=== PATIENT | female | born 1950 | race Caucasian/White ===

== ENCOUNTER → 2019-10-22 21:02 | Outpatient (CLI) | payer MEDICARE, BC, SELFPAY ==
[2019-10-22 15:30] VITALS: BMI 31.4
[2019-10-22 21:13] LABS: Absolute Lymphocyte Count 1.86 X10^3/uL (0.83-4.51); Absolute Neutrophil Count 3.4 X10^3/uL (2.0-7.7); Basophil# 0.05 X10^3/uL; Basophil% 0.8 % (0-1); Eosinophil# 0.24 X10^3/uL; Eosinophils% 3.9 % (0-5); Hematocrit 39.7 % (37-47); Hemoglobin 12.9 g/dL (12.0-15.0); Lymphocyte # 1.86 X10^3/ul (4.0); Lymphocyte % 30.1 % (19-41); Mean Corp Hgb Conc 32.5 g/dL (32-36); Mean Corpuscular Hgb 30.1 pg (27.0-32.0); Mean Corpuscular Volume 92.5 fL (81-99); Mean Platelet Vol. 11.1 fl (6.2-12.0); Monocyte% 9.7 % (0-10); NRBC Flagged by Analyzer 0 % (0-5); Neutrophil # 3.39 X10^3/uL (2.7-7.7); Neutrophil % 54.9 % (47-70); Platelet Count 247 K/mm3 (150-450); RBC Distribution Width CV 13.2 % (11.6-14.6); RBC Distribution Width SD 44.5 fl (35.1-43.9); Red Blood Count 4.29 M/mm3 (4.2-5.4); White Blood Count 6.2 K/mm3 (4.4-11.0)
[2019-10-22 22:53] LABS: ALB/GLOB Ratio 1.2 RATIO (0.9-2.4); AST(SGOT) 16 U/L (15-37); Alanine Aminotransfer ALT/SGPT 28 U/L (13-56); Albumin, Serum 3.7 g/dL (3.2-5.0); Alkaline Phosphatase 105 U/L (45-117); Anion Gap 6 (5-15); BUN 12 mg/dL (7-18); BUN/Creat Ratio 16.7 RATIO (10-20); CPK Total, Creatine Kinase 82 U/L (26-192); CRP, High Sensitivity Cardiac 3.47 mg/L; Calcium,Total 8.5 mg/dL (8.5-10.1); Chloride 113 mmol/L (98-107); Cholesterol 168 mg/dL (200); Creatinine, Serum 0.72 mg/dL (0.55-1.02); EST Glomerular Filtration Rate 85 mL/min (>60); Est Glom Filt Rate - Afr Amer 103 mL/min (>60); Globulin 3.2 g/dL (2.2-4.2); Glucose 86 mg/dL (74-106); High Density Lipoprotein 54 mg/dL; Potassium 4.2 mmol/L (3.5-5.1); Protein, Total 6.9 g/dL (6.4-8.2); Sodium Level 145 mmol/L (136-145); Triglycerides 163 mg/dL; Very Low Density Lipoprotein 33 mg/dL (5-40)
== END ==
PROVIDERS: Family Provider Nurse Practitioner; PCP Nurse Practitioner; Referring Provider Nurse Practitioner; Visit Provider Nurse Practitioner
DX: I10 Essential (primary) hypertension (principal); I49.9 Cardiac arrhythmia, unspecified
CPT/HCPCS: 80053; 80061; 82550; 84484; 85025; 86141

== ENCOUNTER → 2019-11-05 12:30 | Outpatient (CLI) | payer MEDICARE, BC, SELFPAY ==
[2019-10-23 08:35] VITALS: BMI 30.7
--- NOTE | 2019-11-05 12:33 | ECHOD_ITS ---
Reason For Study: ATRIAL FIB-FLUTTER Procedure This was a 2D Doppler, Color Flow transthoracic echocardiogram. Exam performed in department. Left Ventricle Normal LV size. Left ventricular systolic function is normal. The estimated ejection fraction is 65 %. Normal diastology for age. No regional wall motion abnormalities noted. Right Ventricle Normal RV size. Normal systolic function. Atria Normal left atrium. Normal right atrium. Mitral Valve Normal mitral valve. Mild (1+) eccentric mitral valve insufficiency. Tricuspid Valve Normal tricuspid valve. Mild (1+) tricuspid valve insufficiency. Pulmonary artery systolic pressure is 36 mmHg. Aortic Valve Normal aortic valve. Trisinus/trileaflet aortic valve. Pulmonic Valve Normal pulmonic valve. Great Vessels Normal aortic root. The pulmonary artery is normal size. Normal inferior vena cava. Pericardium/Pleural No pericardial effusion. MMode/2D Measurements & Calculations LVIDd: 4.5 cm IVSd: 0.93 cm Ao root diam: 3.1 cm LVIDs: 3.0 cm LVPWd: 0.92 cm RVDd: 3.0 cm FS: 31.9 % LAV(MOD-bp): 48.1 ml LVAd ap4: 25.3 cm2 SV(MOD-sp4): 44.5 ml LAV(MOD-bp) Indexed: 28.1 ml/m2 EDV(MOD-sp4): 75.3 ml LAV(MOD-sp2): 52.5 ml EDV(sp4-el): 78.3 ml LAV(MOD-sp4): 43.2 ml LVAs ap4: 14.0 cm2 ESV(MOD-sp4): 30.8 ml ESV(sp4-el): 30.2 ml EF(MOD-sp4): 59.1 % EF(sp4-el): 61.4 % SV(sp4-el): 48.0 ml LA A4 area: 17.0 cm2 LA dimension(2D): 3.6 cm RA A4 area: 14.6 cm2 Time Measurements MV dec time: 0.21 sec Doppler Measurements & Calculations MV E max andrew: 81.5 cm/sec Lat Peak E' Andrew: 13.5 cm/sec Med Peak E' Andrew: 9.5 cm/sec MV A max andrew: 67.5 cm/sec E/E' lat: 6.1 E/E' med: 8.6 MV E/A: 1.2 Ao V2 max: 147.4 cm/sec LV V1 max: 107.4 cm/sec PA V2 max: 111.5 cm/sec Ao max P.7 mmHg LV V1 max P.6 mmHg TR max andrew: 283.8 cm/sec TR max P.2 mmHg Interpretation Summary Normal LV size. Left ventricular systolic function is normal. The estimated ejection fraction is 65 %. Normal diastology for age. Mild (1+) eccentric mitral valve insufficiency. Mild (1+) tricuspid valve insufficiency. Ordering Physician: Sae Espinoza Referring Physician: Sae Espinoza Performed By: Amairani Mullen RDCS
== END ==
PROVIDERS: Family Provider Nurse Practitioner; PCP Nurse Practitioner; Referring Provider Internal Medicine Cardiovascular Disease; Visit Provider Internal Medicine Cardiovascular Disease
DX: R00.2 Palpitations (principal)
CPT/HCPCS: 93225; 93226; 93306

== ENCOUNTER → 2019-12-19 | Outpatient (CLI) | payer MEDICARE, BC, SELFPAY ==
[2019-12-19 15:24] VITALS: BMI 31.6
[2019-12-19 22:43] LABS: Thyroid Stim Hormone (TSH) 3.41 uIU/mL (0.358-3.74)
== END | disposition home or self-care (01) ==
PROVIDERS: PCP Nurse Practitioner; Referring Provider Nurse Practitioner; Visit Provider Nurse Practitioner
DX: E03.9 Hypothyroidism, unspecified (principal)
CPT/HCPCS: 84443

== ENCOUNTER → 2021-01-02 | Outpatient (CLI) | payer MEDICARE, BC, SELFPAY ==
[2021-01-02 18:54] VITALS: BMI 30.9
[2021-01-02 22:02] LABS: Absolute Lymphocyte Count 2.12 X10^3/uL (0.83-4.51); Absolute Neutrophil Count 2.3 X10^3/uL (2.0-7.7); Basophil# 0.05 X10^3/uL; Basophil% 0.9 % (0-1); Eosinophil# 0.35 X10^3/uL; Eosinophils% 6.6 % (0-5); Hematocrit 40.3 % (37-47); Hemoglobin 13.1 g/dL (12.0-15.0); Lymphocyte # 2.12 X10^3/ul (4.0); Mean Corp Hgb Conc 32.5 g/dL (32-36); Mean Corpuscular Hgb 29.9 pg (27.0-32.0); Mean Platelet Vol. 10.6 fl (6.2-12.0); Monocyte# 0.44 X10^3/uL; Monocyte% 8.3 % (0-10); NRBC Flagged by Analyzer 0 % (0-5); Neutrophil # 2.33 X10^3/uL (2.7-7.7); Platelet Count 282 K/mm3 (150-450); RBC Distribution Width CV 13.6 % (11.6-14.6); RBC Distribution Width SD 46.5 fl (35.1-43.9); Red Blood Count 4.38 M/mm3 (4.2-5.4); White Blood Count 5.3 K/mm3 (4.4-11.0)
[2021-01-02 22:20] LABS: ALB/GLOB Ratio 1.2 RATIO (0.9-2.4); AST(SGOT) 26 U/L (15-37); Alanine Aminotransfer ALT/SGPT 41 U/L (13-56); Albumin, Serum 3.7 g/dL (3.2-5.0); Alkaline Phosphatase 117 U/L (45-117); Anion Gap 6 (5-15); BUN 17 mg/dL (7-18); BUN/Creat Ratio 24.7 RATIO (10-20); Calcium,Total 8.6 mg/dL (8.5-10.1); Chloride 110 mmol/L (98-107); Cholesterol 178 mg/dL (200); Creatinine, Serum 0.69 mg/dL (0.55-1.02); EST Glomerular Filtration Rate 89 mL/min (>60); Est Glom Filt Rate - Afr Amer 108 mL/min (>60); Globulin 3.2 g/dL (2.2-4.2); Glucose 93 mg/dL (74-106); High Density Lipoprotein 58 mg/dL; Potassium 3.6 mmol/L (3.5-5.1); Protein, Total 6.9 g/dL (6.4-8.2); Sodium Level 145 mmol/L (136-145); Thyroid Stim Hormone (TSH) 2.59 uIU/mL (0.358-3.74); Triglycerides 116 mg/dL; Very Low Density Lipoprotein 23 mg/dL (5-40)
== END | disposition home or self-care (01) ==
PROVIDERS: PCP Nurse Practitioner; Referring Provider Nurse Practitioner; Visit Provider Nurse Practitioner
DX: I10 Essential (primary) hypertension (principal)
CPT/HCPCS: 80053; 80061; 84443; 85025

== ENCOUNTER → 2021-03-10 21:37 | Outpatient (CLI) | payer MEDICARE, BC, SELFPAY ==
[2021-01-27 19:41] VITALS: BMI 30.2
[2021-03-10 22:04] LABS: ALB/GLOB Ratio 1.2 RATIO (0.9-2.4); AST(SGOT) 30 U/L (15-37); Alanine Aminotransfer ALT/SGPT 44 U/L (13-56); Albumin, Serum 3.7 g/dL (3.2-5.0); Alkaline Phosphatase 122 U/L (45-117); Anion Gap 8 (5-15); BUN 18 mg/dL (7-18); BUN/Creat Ratio 24.4 RATIO (10-20); Calcium,Total 9.2 mg/dL (8.5-10.1); Chloride 108 mmol/L (98-107); Creatinine, Serum 0.74 mg/dL (0.55-1.02); EST Glomerular Filtration Rate 82 mL/min (>60); Est Glom Filt Rate - Afr Amer 100 mL/min (>60); Globulin 3.2 g/dL (2.2-4.2); Glucose 109 mg/dL (74-106); Protein, Total 6.9 g/dL (6.4-8.2); Sodium Level 143 mmol/L (136-145)
== END ==
PROVIDERS: Visit Provider Nurse Practitioner
DX: I10 Essential (primary) hypertension (principal)
CPT/HCPCS: 80053

== ENCOUNTER → 2021-04-02 | Outpatient (CLI) | payer MEDICARE, BC, SELFPAY ==
[2021-04-02 15:15] VITALS: BMI 29.7
[2021-04-02 21:40] LABS: ALB/GLOB Ratio 1.1 RATIO (0.9-2.4); AST(SGOT) 27 U/L (15-37); Alanine Aminotransfer ALT/SGPT 45 U/L (13-56); Albumin, Serum 3.8 g/dL (3.2-5.0); Alkaline Phosphatase 133 U/L (45-117); Anion Gap 7 (5-15); BUN 20 mg/dL (7-18); BUN/Creat Ratio 25.7 RATIO (10-20); Chloride 104 mmol/L (98-107); Creatinine, Serum 0.78 mg/dL (0.55-1.02); EST Glomerular Filtration Rate 77 mL/min (>60); Est Glom Filt Rate - Afr Amer 93 mL/min (>60); Globulin 3.6 g/dL (2.2-4.2); Glucose 117 mg/dL (74-106); Potassium 3.2 mmol/L (3.5-5.1); Protein, Total 7.4 g/dL (6.4-8.2); Sodium Level 142 mmol/L (136-145)
== END | disposition home or self-care (01) ==
PROVIDERS: Visit Provider Nurse Practitioner
DX: E87.6 Hypokalemia (principal)
CPT/HCPCS: 80053

== ENCOUNTER 2021-12-22 22:45 | Outpatient (CLI) | payer MEDICARE, BC, SELFPAY ==
[2021-12-22 22:57] LABS: Absolute Lymphocyte Count 2.03 X10^3/uL (0.83-4.51); Absolute Neutrophil Count 2.4 X10^3/uL (2.0-7.7); Basophil# 0.05 X10^3/uL; Eosinophil# 0.23 X10^3/uL; Eosinophils% 4.4 % (0-5); Hematocrit 41.4 % (37-47); Hemoglobin 14.3 g/dL (12.0-15.0); Lymphocyte # 2.03 X10^3/ul (0.83-4.51); Mean Corp Hgb Conc 34.5 g/dL (32-36); Mean Corpuscular Hgb 30.6 pg (27.0-32.0); Mean Corpuscular Volume 88.5 fL (81-99); Mean Platelet Vol. 10.5 fl (6.2-12.0); Monocyte# 0.46 X10^3/uL; Monocyte% 8.8 % (0-10); NRBC Flagged by Analyzer 0 % (0-5); Neutrophil # 2.42 X10^3/uL (2.7-7.7); Neutrophil % 46.6 % (47-70); Platelet Count 247 K/mm3 (150-450); RBC Distribution Width CV 13.1 % (11.6-14.6); RBC Distribution Width SD 42.5 fl (35.1-43.9); Red Blood Count 4.68 M/mm3 (4.2-5.4); White Blood Count 5.2 K/mm3 (4.4-11.0)
[2021-12-22 23:18] LABS: ALB/GLOB Ratio 1.1 RATIO (0.9-2.4); AST(SGOT) 26 U/L (15-37); Alanine Aminotransfer ALT/SGPT 33 U/L (13-56); Albumin, Serum 3.8 g/dL (3.2-5.0); Alkaline Phosphatase 110 U/L (45-117); Anion Gap 6 (5-15); BUN 23 mg/dL (7-18); BUN/Creat Ratio 32.4 RATIO (10-20); Chloride 104 mmol/L (98-107); Creatinine, Serum 0.71 mg/dL (0.55-1.02); EST Glomerular Filtration Rate 86 mL/min (>60); Est Glom Filt Rate - Afr Amer 104 mL/min (>60); Globulin 3.5 g/dL (2.2-4.2); Glucose 102 mg/dL (74-106); Potassium 3.1 mmol/L (3.5-5.1); Protein, Total 7.3 g/dL (6.4-8.2); Sodium Level 139 mmol/L (136-145)
== END 2021-12-22 23:59 | disposition home or self-care (01) ==
PROVIDERS: Referring Provider Nurse Practitioner; Visit Provider Nurse Practitioner
DX: E87.1 Hypo-osmolality and hyponatremia (principal); E03.9 Hypothyroidism, unspecified
CPT/HCPCS: 80053; 84443; 85025

== ENCOUNTER 2022-01-22 21:42 | Outpatient (CLI) | payer MEDICARE, BC, SELFPAY ==
[2022-01-22 22:09] LABS: Thyroid Stim Hormone (TSH) 0.65 uIU/mL (0.358-3.74)
== END 2022-01-22 23:59 | disposition home or self-care (01) ==
PROVIDERS: Referring Provider Nurse Practitioner; Visit Provider Nurse Practitioner
DX: E03.9 Hypothyroidism, unspecified (principal)
CPT/HCPCS: 84443

== ENCOUNTER → 2022-03-13 | Outpatient (CLI) | payer MEDICARE, BC, SELFPAY ==
[2022-03-13 04:39] LABS: ALB/GLOB Ratio 1.2 RATIO (0.9-2.4); AST(SGOT) 25 U/L (15-37); Alanine Aminotransfer ALT/SGPT 40 U/L (13-56); Albumin, Serum 3.8 g/dL (3.2-5.0); Alkaline Phosphatase 99 U/L (45-117); Anion Gap 5 (5-15); BUN 20 mg/dL (7-18); BUN/Creat Ratio 30.8 RATIO (10-20); Chloride 110 mmol/L (98-107); Creatinine, Serum 0.65 mg/dL (0.55-1.02); EST Glomerular Filtration Rate 95 mL/min (>60); Est Glom Filt Rate - Afr Amer 115 mL/min (>60); Globulin 3.2 g/dL (2.2-4.2); Glucose 91 mg/dL (74-106); Potassium 3.6 mmol/L (3.5-5.1); Sodium Level 144 mmol/L (136-145)
== END | disposition home or self-care (01) ==
LOC: LABSPEC 04:06
PROVIDERS: Referring Provider Nurse Practitioner; Visit Provider Nurse Practitioner
DX: E87.6 Hypokalemia (principal); E87.1 Hypo-osmolality and hyponatremia
CPT/HCPCS: 80053

== ENCOUNTER 2023-03-02 08:03 | Day surgery (SDC) | payer MEDICARE, BC, SELFPAY ==
[2023-02-18 12:37] LABS: Albumin, Serum 3.6 g/dL (3.2-5.0)
[2023-02-18 12:50] LABS: Thyroid Stim Hormone (TSH) 1.47 uIU/mL (0.358-3.74)
--- NOTE | 2023-02-18 22:56 | HP.PCM_ITS ---
History and Physical History and Physical? Patient Name: Eulalia Lujan : 1950 From:? MONICA VASQUEZ PA-C? DATE OF SURGERY:? 03/02/2023 SCHEDULED PROCEDURE:? Left total knee arthroplasty HISTORY OF PRESENT ILLNESS: Preoperative history and physical exam was performed on February 18, 2023.? This is a 72-year-old female who is been having ongoing pain for nearly 4 years.? She has had previous injury for the knee tripping over a garden hose in the past landing on concrete.? Her pain has been constant, aching, sharp.? She has increased pain going up and down stairs and walking.? She has pain with twisting type activities.? She has to sleep with a pillow between her legs at nighttime.? She complains of medial joint line pain.? She does have start up pain.? Pain can still reach as high as 8/10 with activities.? She has had previous corticosteroid injections with minimal relief.? 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 She has tripped/stumbled in the past due to the pain.? She feels unsafe walking for distances.? She denies previous surgery on the left knee.? She has attempted [id number] medicatio ns including Tylenol with minimal relief.? After failing conservative measures and discussing treatment options with Dr. Cheo Oakes, the patient does wish to proceed with a left total knee arthroplasty.? We have received clearance from her primary care provider Maria Luisa Rm.? She has had previous lab work and EKG.? She denies any recent chest pain, shortness of breath, fevers chills or recent infections.? She denies past history of DVT or pulmonary embolism.? She has tried meloxicam with minimal relief.? Patient has a medical history pertinent for hypertension, thyroid disease and previous kidney stones. REVIEW OF SYSTEMS: Review Of Systems: Constitutional: Reports weight change, but denies change in appetite and fever. Cardiovasular: Denies chest pain, heart murmur and irregular heartbeat. Respiratory: Denies cough, pneumonia, shortness of breath, tuberculosis and wheezing. Gastrointestinal: Denies constipation, diarrhea, heartburn, nausea, rectal itching, bloody stools and vomiting. Genitourinary: Denies incontinence. Musculoskeletal: Reports gait disturbance, leg swelling, pain and trouble walking, but denies weakness. Skin: Reports tattoo, but denies Raynaud's and history of shingles. Neurological: Denies ambulatory dysfunction, dizziness, numbness/tingling and tremor. Psychiatric: Denies anxiety, insomnia and stress. Hematologic/Lymphatic: Reports past transfusion, but denies anemia and bleeding/bruising tendency. Reviewed and updated. PAST MEDICAL HISTORY: Advance Care Plan: Other Directive, LIVING WILL Effective Date: 02/25/2022 Other Directive, POA Effective Date: 02/25/2022 Past Medical History: Medical Problems: High Blood Pressure Kidney Stones - X3 Thyroid Disease Accidents: Fracture - (2001) LT [facility] Surgical Hx: Tubal Ligation - 48 YEARS AGO Anesthesia Complications: Anesthesia Complications - HAD TO WAKE UP Assistive Devices: Glasses - READING, Dentures Reviewed and updated. 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 Personal Habits:? Cigarette Use: Never Smoked Cigarettes.Smokeless Tobacco: Never Used Smokeless Tobacco.E-Cigarette Use: Never used.Alcohol: Denies use.Drug Use: Denies Use.Enjoy Exercising: Daily. Reviewed, no changes. VITALS: Ht: 60 Wt: 155lb Wt k.308 BMI: 30.3 BP: 124/72 Pulse: 72 Resp: 13 T: 96.6 T: 35.9C Pain Level: 8 O2SatR: 98 ALLERGIES: No Known Drug Allergy? MEDICATIONS: Oxycodone HCL 5 mg 1-2 tab by mouth every 4 hours, Zofran 4 mg one by mouth every 8 as needed nausea, Famotidine 20 mg 1 by mouth every day, Meloxicam 15 mg 1 by mouth every day, Potassium Chloride ER 20 Meq 1po qday, Levothyroxine Sodium 100 mcg 1 by mouth every day, Chlorthalidone 25 mg 1 by mouth every day, Vitamin D3 250 mcg (07398 Ut) 1`po everyday PRE-OP EXAM:? General appearance:NORMAL? ? ? Other: Eyes: Conjunctivae and lids: NORMAL? Pupils: ERR Ears, Nose, Mouth, and Throat: NORMAL? Other: Inspection of lips, teeth and gums: NORMAL? ?Other: Neck: Examination of neck: no masses noted. Respiratory: Assessment of respiratory effort: NORMAL? ?Other: ?Auscultation of lungs: clear to auscultation no wheezes, rhonchi or rales. Cardiovascular:? Auscultation of heart: regular rate and rhythm, no murmurs, gallops or rubs. PHYSICAL EXAMINATION: Patient does walk with an antalgic gait.? She has tenderness to palpation along the medial joint line.? There is large effusion with the left knee.? There is no erythema or signs of infection.? Range of motion: Lacks 3 full extension to 120 flexion.? She has correctable varus alignment.? Stable to anterior/posterior drawer with firm endpoint.? Sensation intact to light touch. IMAGING STUDIES: Previous x-rays of left knee reveal varus alignment with medial joint space narrowing, subchondral sclerosis, osteophyte formation consistent with severe stage IV [id number]-[id number] erosive osteoarthritis. IMPRESSION: 1.? Severe left knee osteoarthritis 2.? Hypertension 3.? Thyroid disease 4.? History of kidney stones PLAN: Dr. Cheo Oakes did discuss and review with the patient all treatment options including surgical versus nonsurgical options.? Patient does wish to proceed with the above-stated procedure.? Potential risks, benefits, and complications of the procedure were discussed in detail including but not limited to , infection, nerve and blood vessel damage, persistent pain, numbness, tingling, paresthesias, blood clot, pulmonary embolism, and requirement for possible further surgery.? The patient expressed full understanding and has no further questions for the doctor.? Patient does agree to proceed with the above-stated procedure and has signed the surgery consent form. POST-OP MEDICATION PLAN Postop medications: Patient was given the following medications at the preoperative visit: Famotidine, oxycodone, Zofran.? She was instructed to pickler helper aspirin 81 mg, and senna.? Patient has meloxicam and which she will begin postoperatively.? She will bring her walker to day of surgery. DVT Prophylaxis: Plan will be for aspirin 81 mg twice daily for 4 weeks postoperatively.? Patient denies past history of DVT or pulmonary embolism. This dictation was created using voice recognition software. Phonetic and/or grammatical errors may exist. ___? I have re-examined the patient.? There are no clinical changes since date of exam. ___? See progress notes for changes. ___? Dictated on admission Date: ? ? ?Time: Signature:
[2023-03-02] VITALS (8 sets, daily range): BP systolic 117–169; BP diastolic 54–76; PULSE 77–88; RESP 14–18; TEMP 36.4–37.2; O2SAT 93–99; BMI 28.7
--- NOTE | 2023-03-02 07:40 | PCM.OPRPT ---
Report of Operation Date of Procedure: 03/02/23 Pre-Operative Diagnosis: Left knee primary osteoarthritis Post-Operative Diagnosis: Left knee primary osteoarthritis Surgery/Procedure Performed:: Left knee minimally invasive robotic assisted total knee replacement Description of Surgical Findings:: Stable knee with good patella tracking Surgeon: Cheo Oakes terrazzo journeyman: Simba Dee Type of Anesthesia: Spinal Anesthesiologist: Hernandez Mitchell Special Medications: 2 g Ancef, 1 g TXA at incision, 1 g TXA closure, 10 mg Decadron, joint cocktail (5 mg Duramorph, 30 mL of 0.5% Ropivicaine, 1000 units of epinephrine, 30 mg of Toradol) Specimen's removed: Bony cuts Estimated Blood Loss (mL): 75 Fluids Replaced: 1200 ML Description of Procedure: Implants used: 1. Pepper size 3 triathlon cruciate retaining distal femoral press-fit component 2. Creswell size 3 press-fit tritanium tibial baseplate 3. Pepper X3 9 mm CS polyethylene 4. Creswell X3 32 mm asymmetric patella Brief history operative indications: 72-year-old F with history of left knee osteoarthritis with radiographic findings with loss of joint space, osteophyte formation and subchondral sclerosis. Failed conservative measures as mentioned in the H&P. Discussion of total knee arthroplasty as well as risk and benefits were discussed the patient including but not limited to blood loss, DVTs, PEs, neurovascular damage, general risk of anesthesia including loss of life, and stiffness or instability were discussed with patient. Patient demonstrated understanding and was able to sign informed consent. Procedure: On the date of procedure patient's left lower extremity was marked in the preoperative area. The patient was then taken back to the operating room where the patient was placed on the table in the supine position. All bony prominences were identified a well-padded. Anesthesia assumed control of the C-spine and airway and remained controlled throughout the remainder of the procedure. A tourniquet was placed on the left upper thigh and the leg was prepped in a sterile fashion. The surgeon then scrubbed at this time .Upon reentering the room left lower extremity was draped in a standard orthopedic fashion. A timeout was then called and everyone agreed upon the side, the site, the procedure to be performed, patient's identity and antibiotics given. Esmarch bandage was used to exsanguinate the extremity and the tourniquet was placed up to 250 mmHg with the knee in flexion. A midline skin incision was made and sharp dissection was taken down through skin subcutaneous tissue and fat. The standard medial parapatellar incision was made and the patella was subluxed laterally. An Appropriate deep MCL release was done and the fat pad was resected. Our attention was then directed to the patella. The patella was everted and a flat resection was made. The knee was then flexed up in 2 femoral pins were placed inside the incision and 2 tibial pins were placed outside the incision in the medial tibia bicortically. Once this was completed the 2 checkpoints in the femur and tibia were placed. Knee was then flexed up and the bony landmarks were registered. Once this was completed knee was taken through range of motion and manually stressed allowing us to a plan for an appropriate tibial cut. The robotic arm was brought into the field sterilely and checkpoint and saw were registered. Based on the patient's deformity the tibial cut was made in 1 degree of varus. At this time the tensioner was then placed in the joint and ligament tension was checked at 90 degrees and full extension. Based on the patient's ligamentous tension appropriate adjustments were made to the operative plan and ligament releases were done. Once we were happy with our operative plan with balanced flexion and extension gaps our attention was directed to the femur. The robot was brought into the field sterilely and registered. Posterior condylar cuts, anterior chamfer cuts and anterior cuts were appropriately made for a size 3 femur. When these were completed the saws were switched out in the distal femoral and posterior chamfer cuts were made. Protecting the soft tissue throughout this time. A size 3 tibial base plate was selected. the knee was flexed to 90 degrees and the soft tissues and posterior osteophytes were removed from the joint. 40 cc of the periarticular injection was injected into the posterior medial corner of the joint. The appropriate trials were then placed on the femur and tibia. A trial polyethylene was trialed to ensure proper balancing and stability of the knee. The appropriate tibial internal rotation was then marked with a bovie. Our attention was then directed to the patella. The lug holes were drilled and the patella trial was placed. Patellar tracking was checked and deemed appropriate. Once we were happy lug holes were drilled for the femur and trial components were removed. the tibia was subluxed and pinned into place and the keel was punched and drilled appropriately. Final components were verified and opened, and cement was mixed in a vacuum. [employer] Simplex cement was used. The wound was copiously irrigated with normal saline. When the cement was ready the components were impacted into place starting with the tibia, femur and finally cementing the patella. The trial poly component was placed and the knee was placed in full extension. All excess cement was removed in the process. Once the cement had cured the tracking, alignment and balance were verified and a size 9 mm CS polyethylene component was placed. Once the final components were placed a 3-minute dilute Betadine lavage was performed followed by an Irrisept lavage was performed and the wound was copiously irrigated with normal saline solution and the periarticular injection was given. The wound was closed in a layer gotti fashion using #1 vicryl interrupted sutures for the arthrotomy, 2-0 interrupted Vicryl suture for the subcuticular layer and danny for final skin closure. A sterile compressive dressing was then placed. The patient was then awakened from anesthesia, transferred to the [place] and transferred to the PACU for recovery. Post op plan DVT ppx: ASA 81mg BID, thigh high compression stockings Follow up: in office in 2 weeks for wound check PT: to start POD #0 at hospital, outpatient PT should be arranged. My physician recruitment assistant was a vital part of this case. He was important in appropriate retraction during the case, and protection of soft tissues during bony cuts. His intimate knowledge of the case and my steps aided in safe and expedient completion of the procedure as well as appropriate position of the leg during the case. He was also vital in assisting with closure under my direct supervision. Due to the complexity of this case robotic arm was used to assist in the surgery to improve accuracy and clinical outcomes. Complications No intraoperative complications Admit VTE Documentation VTE Present on Admission: No VTE Mechan Device Prophylaxis: SCD's and Thigh High ZELDA Hose VTE Pharm Prophylaxis ordered?: Yes
[2023-03-02] MEDS: Magnesium 1 GM over 15 mins IV (08:38)
[2023-03-02] MEDS: Lactated Ringers 1,000 ML 999 ML IV ×2 (08:38→12:15)
[2023-03-02] MEDS: Acetaminophen 500 MG Tablet 1000 MG PO ×2 (08:40→14:50)
[2023-03-02] MEDS: Gabapentin 600 MG Tablet PO (08:41)
[2023-03-02] MEDS: Celecoxib 200 MG Capsule 400 MG PO (08:41)
[2023-03-02] MEDS: Vancomycin IV 1,000 MG/200 ML BAG 200 MG IV (08:49)
[2023-03-02 09:15] LABS: Bedside Glucose 104 mg/dL (74-106)
--- NOTE | 2023-03-02 10:30 | KNEE_PTH ---
PATIENT: RACHEL ELIZABETH LOC: [facility] [place] U#:[id number] AGE/SX: 72/F ROOM: RE03/02/[address]: Dr. Cheo Oakes MD : 1950 BED: DIS: 03/02/2023 SPEC #: [id number] RECD: 03/02/23 14:27 STATUS: ANGEL REKelsi #: [id number] ERIK: 03/02/23 10:[address]: Cheo Oakes DEPT: SURGICAL PATHOLOGY RECD BY: Jyotsna Gutierrez ENTERED: 03/03/23 09:43 SP TYPE: TOTAL KNEE OTHR DR: Maria Luisa Rm, SITE SPECIALIST-C Tissues: Knee, NOS Procedures: Decalcification bone/plaque Surgery Specimen Level IV HEADER OPERATION: ERAS, total knee replacement robotic arm assist PRE-OP DIAGNOSIS: Osteoarthritis left knee TISSUE SUBMITTED: Debrided tissue and bone left knee MICROSCOPIC DIAGNOSIS Bone and tissue, left knee, total knee replacement/resection: Pieces of bone with degenerative osteoarthritic changes. Fibroadipose tissue, fibroconnective tissue and reactive synovial tissue. MER:killian 03/07/2023 MICROSCOPIC DESCRIPTION Slides are reviewed. GROSS DESCRIPTION Received is one container designated debrided tissue and bone left knee. The specimen consists of multiple fragments of guzman-yellow bone measuring in aggregate 9.0 x 8.0 x 3.0 cm. A small piece of soft tissue attached to one of the pieces of bone measuring 3.5 x 1.0 x 0.5 cm. A number of bony fragments contain articular surfaces consistent with tibial plateau and femoral condyle and displaying prominent osteophyte formation, eburnation and bone erosion. Ring Making Machine Operator sections are submitted in two cassettes as follows: 1 - soft tissue, 2 - bone after decalcification. / MER:killian 03/03/2023 :5 CPT: 07595, [id number]
[2023-03-02] MEDS: Cefazolin 2 GM in 0.9% Normal Saline 100 ML IV (10:35)
[2023-03-02] MEDS: dexAMETHasone 10 MG/ML Vial IV (10:50)
[2023-03-02] MEDS: TXA 1000mg in NS100 100ml (IVPB at Incision) 660 MG IV (10:50)
[2023-03-02] MEDS: JPS (Morphine 10mg/ml) OPERA.SITE (11:18)
[2023-03-02] MEDS: TXA 1000mg in NS100 100ml (IVPB at Closure) 660 MG IV (11:22)
--- NOTE | 2023-03-02 12:15 | RAD_ITS ---
HISTORY tka -- in PACU. TECHNIQUE: XR Knee 1 or 2 Views. COMPARISON: None. FINDINGS: BONES : No acute fracture identified. No abnormal periprosthetic lucency seen. Screw tracks in the distal femur. Small bone island or enchondroma in the fibular neck. JOINTS: Left knee in place without dislocation. SOFT TISSUES: Postoperative air and edema with overlying skin danny. RAD/Knee 1 or 2 Views IMPRESSION: Satisfactory postoperative alignment of left knee arthroplasty. Electronically Signed: Avril Khan MD at 11:50 EDT ,
[2023-03-02] MEDS: Cefazolin 1 GM/50 ML BAG IV (14:14)
[2023-03-02] MEDS: Lactated Ringers 1,000 ML 75 ML IV (14:15)
== END 2023-03-02 15:19 | disposition home or self-care (01) ==
LOC: SDC 08:06 → AC 08:07
PROVIDERS: Anesthesiology; PCP Nurse Practitioner; Referring Provider Specialist; Visit Provider Specialist
PROC: 0SRD0JZ Replacement of Left Knee Joint with Synthetic Substitute, Open Approach (ICD-10-PCS; CPT 27447; principal; 2023-03-02 10:00)
DX: M17.12 Unilateral primary osteoarthritis, left knee (principal); I10 Essential (primary) hypertension; E03.9 Hypothyroidism, unspecified; Z79.899 Other long term (current) drug therapy; Z79.890 Hormone replacement therapy; L65.9 Nonscarring hair loss, unspecified; E87.6 Hypokalemia; I49.49 Other premature depolarization; L29.9 Pruritus, unspecified; R00.2 Palpitations; R06.02 Shortness of breath
CPT/HCPCS: 27447; S2900; 01402; 64447; 36415; 73560; 82040; 82962; 83735; 84443; 87077; 87081; 88305; 88311; 97161; C1776; J7120; J2405; J3475

== ENCOUNTER → 2023-04-29 | Outpatient (CLI) | payer MEDICARE, BC, SELFPAY ==
[2023-04-29 22:25] LABS: AST(SGOT) 19 U/L (15-37); Alanine Aminotransfer ALT/SGPT 24 U/L (13-56); Albumin, Serum 3.5 g/dL (3.2-5.0); Alkaline Phosphatase 119 U/L (45-117); Anion Gap 4 (5-15); BUN 17 mg/dL (7-18); BUN/Creat Ratio 29.4 RATIO (10-20); Chloride 107 mmol/L (98-107); Creatinine, Serum 0.58 mg/dL (0.55-1.02); EST Glomerular Filtration Rate 108 mL/min (>60); Est Glom Filt Rate - Afr Amer 131 mL/min (>60); Globulin 3.5 g/dL (2.2-4.2); Glucose 88 mg/dL (74-106); Potassium 3.6 mmol/L (3.5-5.1); Sodium Level 141 mmol/L (136-145)
== END | disposition home or self-care (01) ==
PROVIDERS: PCP Nurse Practitioner; Visit Provider Nurse Practitioner
DX: E87.6 Hypokalemia (principal); E87.1 Hypo-osmolality and hyponatremia
CPT/HCPCS: 80053